=== PATIENT | male | born 1955 | race Caucasian/White ===

== ENCOUNTER 2021-06-06 12:39 | Inpatient (IN) | payer OTHER ==
[~2021-06-06] VITALS: Ht 195.6 cm; Wt 108.9 kg
[2021-06-06 13:40] LABS: HEMOGLOBIN 15.4 gm/dl (14.0-17.5); RED BLOOD COUNT 5.17 M/UL (4.20-5.50)
[2021-06-06] MEDS ORDERED: MOBIC7.5 MG PO (18:39)
[2021-06-06] MEDS ORDERED: PROAIR DIGIHAL90 MCG INH (18:39)
[2021-06-06] MEDS ORDERED: METOPROLOL TART50 MG PO (18:40)
[2021-06-06] MEDS ORDERED: METFORMIN HCL1000 MG PO (18:40)
[2021-06-06] MEDS ORDERED: ALBUTEROL2.5 MG/3 M NEB (18:41)
[2021-06-06] MEDS ORDERED: SINGULAIR10 MG PO (18:41)
[2021-06-06] MEDS ORDERED: ADVAIR 100-501 EACH INH (18:41)
[2021-06-06] MEDS ORDERED: GLIPIZIDE10 MG PO (18:42)
[2021-06-06] MEDS ORDERED: HYDROCHLOROTHIA25 MG PO (18:42)
[2021-06-06] MEDS ORDERED: PROTONIX40 MG PO (18:42)
[2021-06-06] MEDS ORDERED: ZYRTEC10 MG PO (18:43)
[2021-06-06] MEDS ORDERED: VITAMIN D350 MC3 PO (18:43)
[2021-06-06] MEDS ORDERED: ZINC50 M1 PO (18:43)
[2021-06-06] MEDS ORDERED: TRAMADOL HCL50 MG PO (18:52)
[2021-06-07 05:50] LABS: HEMOGLOBIN 14.9 gm/dl (14.0-17.5); RED BLOOD COUNT 5.12 M/UL (4.20-5.50)
[2021-06-07 05:52] LABS: WHITE BLOOD COUNT 12.5 K/UL (4.5-11.0)
[2021-06-07 19:42] LABS: BUN/CREATININE RATIO 14 (0-10)
[2021-06-08 05:56] LABS: RED BLOOD COUNT 5.03 M/UL (4.20-5.50)
[2021-06-08 06:04] LABS: WHITE BLOOD COUNT 21.8 K/UL (4.5-11.0)
--- NOTE | 2021-06-08 15:23 | NUR ---
1315: NURSE AND MD SPOKE WITH PT MULTIPLE TIMES ABOUT ACUITY OF ILLNESS AND NEED TO WEAR BIPAP. PT REFUSED BIPAP AND WISHES TO BE DNR/DNI. PT AND FAMILY AWARE OF PT DECREASE IN O2 AND PT HIGH RISK FOR FURTHER DECLINE.
--- NOTE | 2021-06-08 19:07 | NUR ---
Patient refusing to wear 100% nonrebreather with 100% Airvo. Explained to patient that he needed to wear the extra oxygen to ensure he was receiving enough oxygen to maintain his oxygen saturation about 90%. Patient states that he was unable to tolerate the mask covering his face, that he felt that he was tied down and wrapped up in all kinds of cables and cords. I called the md and told him of patient's refusal. He said there is nothing we can do because patient is alert and oriented to person, place, and situation.
[2021-06-09 05:51] LABS: HEMOGLOBIN 14.9 gm/dl (14.0-17.5); RED BLOOD COUNT 5.21 M/UL (4.20-5.50); WHITE BLOOD COUNT 20.4 K/UL (4.5-11.0)
[2021-06-10 05:46] LABS: HEMOGLOBIN 14.4 gm/dl (14.0-17.5); RED BLOOD COUNT 4.91 M/UL (4.20-5.50)
[2021-06-10 05:54] LABS: WHITE BLOOD COUNT 11.3 K/UL (4.5-11.0)
[2021-06-11 06:13] LABS: HEMOGLOBIN 14.1 gm/dl (14.0-17.5); RED BLOOD COUNT 4.78 M/UL (4.20-5.50); WHITE BLOOD COUNT 13.9 K/UL (4.5-11.0)
--- NOTE | 2021-06-11 09:37 | NUR ---
PATIENT HAVING INCREASED RESPIRATIONS AND OXYGEN SATURATION DROPPING TO 77%. PATIENT PLACED BACK ON BIPAP. OXYGEN SATURATION INCREASED TO 98%. PATIENT RESTING COMFORTABLY.
[2021-06-12 05:55] LABS: HEMOGLOBIN 13.9 gm/dl (14.0-17.5); RED BLOOD COUNT 4.8 M/UL (4.20-5.50); WHITE BLOOD COUNT 15.1 K/UL (4.5-11.0)
--- NOTE | 2021-06-12 17:52 | NUR ---
1731: PATIENT REFUSING TO WEAR BIPAP EVEN THOUGH HIS OXYGEN LEVEL IS IN THE 70'S. PATIENT IS ALERT AND ORIENTED X3. DR. MALDONADO AT BEDSIDE. PATIENT STATES HE WANTS "TO BE A DNR AND DOES NOT WANT TO BE RESUCITATED". PATIENT IS EDUCATED BY DR. MALDONADO AND MAKES DECISION TO BE DNR. PATIENT STILL REFUSING BIPAP.
== END 2021-06-16 15:40 | disposition expired | DRG 871 ==
LOC: ER1 12:39 → CDU 15:19 → CCU 15:19 → MED SURG 4 18:19 → CCU 06-07 17:24
PROVIDERS: Family Medicine; Internal Medicine; Internal Medicine Nephrology; ADMIT Internal Medicine
PROC: 8E0ZXY6 Isolation (ICD-10-PCS; principal; 2021-06-06)
PROC: XW033E5 Introduction of Remdesivir Anti-infective into Peripheral Vein, Percutaneous Approach, New Technology Group 5 (ICD-10-PCS; 2021-06-06)
PROC: 3E0333Z Introduction of Anti-inflammatory into Peripheral Vein, Percutaneous Approach (ICD-10-PCS; 2021-06-06)
PROC: 5A09357 Assistance with Respiratory Ventilation, Less than 24 Consecutive Hours, Continuous Positive Airway Pressure (ICD-10-PCS; 2021-06-07)
PROC: 3E033XZ Introduction of Vasopressor into Peripheral Vein, Percutaneous Approach (ICD-10-PCS; 2021-06-08)
PROC: 5A09457 Assistance with Respiratory Ventilation, 24-96 Consecutive Hours, Continuous Positive Airway Pressure (ICD-10-PCS; 2021-06-11)
DX: A41.9 Sepsis, unspecified organism (principal); R65.21 Severe sepsis with septic shock; U07.1 COVID-19; J12.82 Pneumonia due to coronavirus disease 2019; J80 Acute respiratory distress syndrome; J15.9 Unspecified bacterial pneumonia; N17.0 Acute kidney failure with tubular necrosis; G92.8 Other toxic encephalopathy; J44.0 Chronic obstructive pulmonary disease with (acute) lower respiratory infection; Z94.81 Bone marrow transplant status; E87.2 Acidosis; M86.172 Other acute osteomyelitis, left ankle and foot; M86.672 Other chronic osteomyelitis, left ankle and foot; E22.2 Syndrome of inappropriate secretion of antidiuretic hormone; E87.3 Alkalosis; Z66 Do not resuscitate; Z51.5 Encounter for palliative care; I25.10 Atherosclerotic heart disease of native coronary artery without angina pectoris; M54.9 Dorsalgia, unspecified; G89.29 Other chronic pain; I71.4 Abdominal aortic aneurysm, without rupture; F17.210 Nicotine dependence, cigarettes, uncomplicated; Z96.659 Presence of unspecified artificial knee joint; I12.9 Hypertensive chronic kidney disease with stage 1 through stage 4 chronic kidney disease, or unspecified chronic kidney disease; E11.22 Type 2 diabetes mellitus with diabetic chronic kidney disease; E87.6 Hypokalemia; E87.5 Hyperkalemia; L89.156 Pressure-induced deep tissue damage of sacral region; R53.83 Other fatigue; E87.70 Fluid overload, unspecified; N18.32 Chronic kidney disease, stage 3b; F41.9 Anxiety disorder, unspecified; I48.0 Paroxysmal atrial fibrillation; E83.42 Hypomagnesemia; E11.621 Type 2 diabetes mellitus with foot ulcer; E11.69 Type 2 diabetes mellitus with other specified complication; D69.6 Thrombocytopenia, unspecified; L97.529 Non-pressure chronic ulcer of other part of left foot with unspecified severity; Z95.1 Presence of aortocoronary bypass graft; Z98.890 Other specified postprocedural states; Z85.72 Personal history of non-Hodgkin lymphomas; Z90.49 Acquired absence of other specified parts of digestive tract; Z79.84 Long term (current) use of oral hypoglycemic drugs; Z79.899 Other long term (current) drug therapy; Z79.4 Long term (current) use of insulin
CPT/HCPCS: ECHO; 36415; 36600; 70551; 71045; 73630; 80048; 80053; 80162; 80307; 81001; 82140; 82436; 82533; 82550; 82553; 82803; 82962; 83036; 83605; 83735; 83874; 83880; 83935; 84100; 84133; 84300; 84439; 84443; 84484; 84550; 85025; 85027; 85379; 85610; 86140; 87040; 93005; 93306; 94640; 94660; 94760; 99285; A6212; G0480; J0456; J0692; J0696; J1100; J1160; J1650; J1885; J2060; J2370; J3010; J3370; J3475; J7030; J7040; J7070; U0002